=== PATIENT | male | born 1965 | race Two or more races ===

== ENCOUNTER 2016-12-21 13:44 | Day surgery (SDC) | payer OTHER ==
[~2016-12-21] VITALS: Ht 165.1 cm; Wt 81.4 kg
[2016-12-21 14:26] VITALS: Ht 165.1 cm; Wt 81.4 kg
[2016-12-21] MEDS ORDERED: LOSA25TA5 PO (14:41)
[2016-12-21] MEDS ORDERED: METO25TA4 PO (14:41)
[2016-12-21] MEDS ORDERED: ATOR40TA68 PO (14:41)
[2016-12-21] MEDS ORDERED: PANT40TA4 PO (14:41)
[2016-12-21] MEDS ORDERED: MELO-109 PO (14:41)
[2016-12-21] MEDS ORDERED: PROPOFOL 40 ML ONE (15:24)
[2016-12-21 15:28] VITALS: BP 176/90; PULSE 68; RESP 17
[2016-12-21 16:45] VITALS: BP 172/108; RESP 20
[2016-12-21 17:12] VITALS: BP 163/99; PULSE 66; RESP 20
--- NOTE | 2016-12-21 18:22 | GILP ---
DATE OF PROCEDURE: NAME OF PROCEDURES: 1. Esophagogastroduodenoscopy and biopsy. 2. Colonoscopy and biopsy. 3. Polypectomy. 4. Clipping of the polypectomy site. INDICATION FOR THE PROCEDURE: Mr. Keyla Grewal is a 51-year-old male patient who had upper abdomi nal pain, not responding to therapy. The patient also had chronic diarrhea. He was scheduled for e ndoscopy and colonoscopy for further evaluation. The procedures and possible complications are well explained to the patient, he understood and conse nted to the procedure. DESCRIPTION OF PROCEDURE: Under the influence of anesthesia, the gastroscope was carefully introduc ed into the esophagus. Under direct vision, it was advanced to the stomach and through the pylorus into the duodenal bulb and descending duodenum. FINDINGS: ESOPHAGUS: The mucosa was normal. STOMACH: The patient had gastritis with erosions. Gastric mucosal biopsies were taken for H. pylor i test. DUODENUM: Normal. The colonoscope was carefully introduced in the rectum. Under direct vision, it was advanced all th e way to the cecum. FINDINGS: The patient had a polyp in the right colon, which was removed using the snare and electro cautery. There was some bleeding following polypectomy and clipping of the polypectomy site was don e and the bleeding was stopped. The patient was noted to have 2 small polyps in the transverse colo n and they were removed using the biopsy forceps. Random biopsies were taken to rule out microscopi c colitis. The patient was noted to have internal hemorrhoids. He tolerated the procedures very well and there was no complication from the procedure. At the end of the procedures, he was awake with stable vital signs and he was discharged home to the care of hi s family. POSTOPERATIVE DIAGNOSES: 1. Colonoscopy all the way to the cecum. 2. Right colon polyp was removed using the snare and electrocautery. 3. Post polypectomy bleeding was stopped with clipping. 4. Small transverse colon polyps were removed using the biopsy forceps. 5. Random biopsies were taken to rule out microscopic colitis. 6. Internal hemorrhoids. PLAN: 1. Continue pantoprazole. 2. Add Zantac 300 mg p.o. at bedtime. 3. Questran 1 scoop full dissolved in a glass of water p.o. b.i.d. 4. Await histopathology reports. 5. Next screening colonoscopy in 5 years. Dictated By: PARAG JOHANSEN/ISAIAS Conf#: [id number] DID#: [id number]
--- NOTE | 2016-12-22 09:00 | CONS ---
DATE OF ADMISSION: 12/21/2016 DATE OF CONSULTATION: TYPE OF CONSULTATION: Preoperative gastroenterology. Dear Dr. Johnson: I thank you very much for this kind referral. HISTORY OF PRESENT ILLNESS: Mr. Keyla Grewal is a 51-year-old male patient who has been referred to me for further evaluation of abdominal pain and chronic diarrhea. The patient states he has got epigastric pain, which is not responding to therapy with pantoprazole. There is no past history of peptic ulcer disease. Patient has been taking Meloxicam for arthritis. He is status post cholecys tectomy. He does not have any fever, chills or jaundice. The patient has history of hepatitis B, b ut according to him, it is inactive. This patient also complains of chronic diarrhea. There is no past history of inflammatory bowel disease. There is no past history of colon neoplasm. He is hype rtensive. He is not a diabetic. He does not have any heart disease or lung problem. There is no h istory of kidney disease. He has got hyperlipidemia. SOCIAL HISTORY: He is a nonsmoker. He does not abuse alcohol. FAMILY HISTORY: Negative for gastrointestinal tract neoplasm or inflammatory bowel disease. ALLERGIES: THERE IS NO HISTORY OF SIGNIFICANT DRUG ALLERGY. MEDICATIONS: 1. Pantoprazole 2. Metoprolol. 3. Losartan. 4. Atorvastatin. 5. Meloxicam. PHYSICAL EXAMINATION: GENERAL: He is 5 feet 5 inches tall and he weighs 180 pounds. HEART: Examination of the heart reveals normal first and second heart sounds. LUNGS: Clear. ABDOMEN: Soft without any distention. Liver and spleen are not palpable. There are no masses. Th ere is no focal tenderness. Normal bowel sounds are heard. CENTRAL NERVOUS SYSTEM: Does not reveal any focal neurological deficit. IMPRESSION: 1. Upper abdominal pain, not responding to therapy with pantoprazole. 2. The patient has been taking Meloxicam for arthritis. 3. Chronic diarrhea. 4. Hypertension. 5. Hyperlipidemia. 6. History of chronic hepatitis B. 7. Status post cholecystectomy. PLAN: 1. Continue pantoprazole. 2. Endoscopy and colonoscopy for further evaluation. 3. The patient is very anxious and he has got a short thick neck, he needs monitored anesthesia car e for the procedures. Procedures and possible complications are well explained to the patient and his son. They understan d and consent to the procedures. I thank you once again. With warmest personal regards, Dictated By: PARAG JOHANSEN/ISAIAS Conf#: [id number] DID#: [id number]
== END 2016-12-21 16:29 | disposition home or self-care (01) ==
LOC: GIL 13:44
PROVIDERS: ATTEND Internal Medicine Gastroenterology
DX: K29.60 Other gastritis without bleeding (principal); D12.3 Benign neoplasm of transverse colon; K63.5 Polyp of colon; K64.8 Other hemorrhoids; I10 Essential (primary) hypertension; E78.5 Hyperlipidemia, unspecified
CPT/HCPCS: 43239; 45380; 45385; 82962; 87081; 88305; Z7610

== ENCOUNTER 2017-10-26 18:56 | Emergency (ER) | END 2017-10-26 19:50 | disposition left against medical advice (07) ==